=== PATIENT | female | born 1965 | race Caucasian/White ===

== ENCOUNTER → 2018-07-05 19:35 | Outpatient (CLI) | payer MEDICAID | END | disposition home or self-care (01) | LOC: D.MAMMO 11:30 | DX: Z12.31 Encounter for screening mammogram for malignant neoplasm of breast (principal) ==

== ENCOUNTER → 2019-08-24 08:43 | Outpatient (CLI) | payer MEDICARE ==
[~2019-08-24 08:43] MED LIST: BUPROPION XL150 MG PO; KLONOPIN1 MG PO; LAMICTAL200 M1 PO; LEVOTHYROXINE100 MCG PO; LIPITOR10 MG PO; MOBIC7.5 MG PO; NEURONTIN800 MG PO; PROMETRIUM200 MG PO; PROTONIX40 MG PO; RISPERDAL1 MG PO
[2019-09-04 07:36] VITALS: BMI 23.6
== END | disposition home or self-care (01) ==
LOC: D.CT 08:43
PROVIDERS: ATTEND Urology
DX: R10.9 Unspecified abdominal pain (principal)

== ENCOUNTER 2019-09-04 06:06 | Day surgery (SDC) | payer MEDICARE ==
[~2019-09-04] VITALS: Ht 160 cm; Wt 60.3 kg
[2019-09-04 06:25] LABS: HEMATOCRIT 36.3 % (36.0-48.0); HEMOGLOBIN 11.9 g/dL (12-16); MCHC 32.8 g/dL (31.0-37.0); MCV 100.6 fL (80.0-100.0); RBC 3.61 10x6/uL (4.00-5.40); RDW 12.9 % (11.5-14.5); WBC 5.9 10x3/uL (4.8-10.8)
[2019-09-04 07:36] VITALS: BP 101/63; Ht 160 cm; Wt 60.3 kg
--- NOTE | 2019-09-04 10:21 | NUR ---
DC INSTRUCTIONS GIVEN TO PT. STATES UNDERSTANDING. DC'D IV CATH FULLY INTACT.
--- NOTE | 2019-09-04 10:26 | NUR ---
PT LEFT UNIT VIA WC AT 1026
--- NOTE | 2019-09-14 15:09 | OP ---
PATIENT NAME: CH[facility]ARRO [facility] MEDICAL RECORD: [id number] :61 LOCATION:D.OPS ADMISSION DATE: SURGEON: CARROLL KIRK MD DATE OF OPERATION: 09/04/2019 SURGEON: Carroll Kirk MD ANESTHESIA: TIVA. DIAGNOSES: Microscopic hematuria, interstitial cystitis. PROCEDURES: Cystoscopy, hydrodistention of the bladder and intravesical Rimso instillation. FINDINGS: Diffusely inflamed bladder with no bladder tumors. Single ureteral orifices bilaterally. BLOOD LOSS: None. CLINICAL HISTORY: This is a 53-year-old female, who has complaints of suprapubic right lower quadrant, left lower quadrant pelvic pain with dysuria for the past 4 months. Urine cultures have shown no growth. She also has urinary frequency every 2 hours and nocturia with urge incontinence. She has symptoms suggestive of interstitial cystitis and she comes today to have cystoscopy. If bladder inflammation is seen, then she will be having hydrodistention of the bladder and intravesical Rimso instillation. She has no medication allergies. She was given Ancef brazer induction to the OR. DESCRIPTION OF PROCEDURE: The patient was given IV sedation. She was then placed into a lithotomy position and prepped and draped. A 17-Mexican cystoscope with 30-degree lens was used for visualization. There are single ureteral orifices bilaterally with no bladder tumors seen. The bladder was diffusely inflamed. The bladder was hydrodistended with at least 600 mL in the bladder for 2 minutes. The bladder was then emptied and the scope removed. A 16-Mexican red rubber catheter was then used to instill 50 mL of Rimso solution into the bladder. The catheter was then removed, leaving the Rimso solution in the bladder. The patient will hold the Rimso solution for 15 minutes and then void it out. I will see her in followup in 2 weeks' time to check on her symptom resolution. TRANSINT:[id number] Voice Confirmation ID: [id number] DOCUMENT ID: [id number] CARROLL KIRK MD at 1509 CC: [id number] DICTATION DATE: 09/14/19 1407 GAME TESTER: 09/14/19 1442 [facility] 09/04/19 [place] [id number]
== END 2019-09-04 10:26 | disposition home or self-care (01) ==
LOC: D.OPS 06:06 → D.PAN 09:10 → D.OPS 09:10 → D.PAN 10:30 → D.OPS 10:30
PROVIDERS: Anesthesiology; ATTEND Urology
DX: N30.10 Interstitial cystitis (chronic) without hematuria (principal); N39.41 Urge incontinence; R10.9 Unspecified abdominal pain; R30.0 Dysuria

== ENCOUNTER → 2019-09-24 17:06 | Outpatient (CLI) | payer MEDICARE ==
[2019-09-04 07:36] VITALS: BMI 23.6
== END | disposition home or self-care (01) ==
LOC: D.LABREF 17:06
PROVIDERS: ATTEND Urology
DX: R82.90 Unspecified abnormal findings in urine (principal)